=== PATIENT | female | born 1950 | race Caucasian/White ===

== ENCOUNTER 2016-05-11 05:54 | Inpatient (IN) | payer OTHER ==
[2016-04-29 11:14] LABS: ADD DIFF? NO; ADD MORPH? NO; ADD SCAN? NO; ATYPICAL LYMPHOCYTE FLAG 10 (0-99); FRAGMENT RBC FLAG 0 (0-99); HEMATOCRIT 45.3 % (38.0-47.0); HEMOGLOBIN 15.5 g/dL (12.6-16.3); LEFT SHIFT FLG 0 (0-99); LIPEMIA HEMOLYSIS FLAG 90 (0-99); MEAN CELL HEMOGLOBIN 32.8 pg (27.9-34.1); MEAN CELL HEMOGLOBIN CONCENTR. 34.2 g/dL (32.4-36.7); MEAN CELL VOLUME 95.8 fL (81.5-99.8); PLATELET CLUMPS FLAG 0 (0-99); PLATELET COUNT 284 10^3/uL (150-400); RED BLOOD CELL COUNT 4.73 10^6/uL (4.18-5.33); RED CELL DISTRIBUTION WIDTH 12.2 % (11.5-15.2)
[~2016-05-11 05:54] MED LIST: LIDOCAINE 0.5% 50 ML SDV ONE; LIDOCAINE 1% 5 ML SDV ONE
[2016-05-11] MEDS ORDERED: DEXAMETHASONE 4 MG/ML VIAL ONE (06:38)
[2016-05-11] MEDS ORDERED: FAMOTIDINE 20 MG TAB ONE (06:38)
[2016-05-11] MEDS ORDERED: CEFAZOLIN 2 GM/DEXTROSE/100 ML BAG IV ONE (06:39)
[2016-05-11] MEDS ORDERED: BUPIVACAINE/EPI 0.5% 30 ML SDV ONE (06:42)
[2016-05-11] MEDS ORDERED: THROMBIN (RECOMBINANT) 5,000 UNIT VIAL TP ONE (06:43)
[2016-05-11] MEDS ORDERED: POLYMYXIN B SULFATE 500,000 UNIT/10 ML SYR IRR ONE (06:43)
[2016-05-11] MEDS ORDERED: CALCIUM CHLORIDE 1 GM/10 ML INJ ONE (06:43)
[2016-05-11] MEDS ORDERED: BACITRACIN 50,000 UNITS/10 ML SYR IRR ONE (06:43)
[2016-05-11] MEDS ORDERED: ACETAMINOPHEN 325 MG TAB PO ONE (07:00)
[2016-05-11] MEDS ORDERED: ROPI/epiNEPH/KETOROLAC/morphINE JOINT COCKTAIL IU ONE (07:00)
[2016-05-11] MEDS ORDERED: CHLORHEXIDINE GLUC HIBICLENS 118 ML BTL TP ONE (07:00)
[2016-05-11] MEDS ORDERED: DEXAMETHASONE 4 MG/ML VIAL IVP ONE (07:00)
[2016-05-11] MEDS ORDERED: FAMOTIDINE 20 MG TAB PO ONE (07:00)
[2016-05-11] MEDS ORDERED: CEFAZOLIN 2 GM/DEXTR 100 ML IV ONE (07:00)
[2016-05-11] MEDS ORDERED: PROPOFOL/EMULSION 500 MG/50 ML BOTTLE IV ONE (07:10)
[2016-05-11] MEDS ORDERED: LIDOCAINE 2% 100 MG/5 ML SYR IVP ONE (07:10)
[2016-05-11] MEDS ORDERED: MIDAZOLAM 2 MG/2 ML VIAL ONE (07:13)
[2016-05-11] MEDS ORDERED: LR 1,000 ML IV ONE (07:52)
[2016-05-11] MEDS ORDERED: LIDOCAINE 1% 5 ML SDV ID PRN (07:52)
[2016-05-11] MEDS ORDERED: LORazepam 0.5 MG TAB PO PRN (09:45)
[2016-05-11] MEDS ORDERED: valACYclovir 500 MG TAB PO PRN (09:45)
--- NOTE | 2016-05-11 09:45 | POSTOPPROG ---
Post Op Note Date of Operation: 05/11/16 Surgeon: Corrina Fisher Welding Setter: justin Anesthesiologist: abigail Anesthesia: Epidural Pre-op Diagnosis: l hip oa Procedure: l yue with fluoro Inf/Abcess present in the surg proc area at time of surgery?: No Depth: Deep Incisional (Fascial) EBL: 100-500
[2016-05-11] MEDS ORDERED: BISACODYL 10 MG SUPP PR PRN (09:46)
[2016-05-11] MEDS ORDERED: ONDANSETRON 4 MG/2 ML VIAL IVP PRN (09:46)
[2016-05-11] MEDS ORDERED: MAGNESIUM HYDROXIDE 30 ML UDCUP PO PRN (09:46)
[2016-05-11] MEDS ORDERED: LACTULOSE 20 GM/30 ML UDCUP PO PRN (09:46)
[2016-05-11] MEDS ORDERED: diphenhydrAMINE 25 MG CAP PO PRN (09:46)
[2016-05-11] MEDS ORDERED: POLYETHYLENE GLYCOL 3350 17 GM PKT PO PRN (09:46)
[2016-05-11] MEDS ORDERED: ONDANSETRON DISINTEGRATING 4 MG TAB PO PRN (09:46)
[2016-05-11] MEDS ORDERED: TAPENTADOL HCL 50 MG TAB PO PRN (09:46)
[2016-05-11] MEDS ORDERED: CYCLOBENZAPRINE 10 MG TAB PO PRN (09:46)
[2016-05-11] MEDS ORDERED: DIPHENOXYLATE/ATROPINE LOMOTIL 1 TAB PO PRN (09:46)
[2016-05-11] MEDS ORDERED: PROMETHAZINE HCL 25 MG SUPPR PR PRN (09:46)
[2016-05-11] MEDS ORDERED: METOCLOPRAMIDE 10 MG/2 ML VIAL IVP PRN (09:46)
[2016-05-11] MEDS ORDERED: PHARMACY PAIN CONSULT 1 EA MISC PRN (09:46)
[2016-05-11] MEDS ORDERED: TEMAZEPAM 15 MG CAP PO PRN (09:46)
[2016-05-11] MEDS ORDERED: PROMETHAZINE HCL 25 MG/ML INJ IVP PRN (09:46)
[2016-05-11] MEDS ORDERED: oxyCODONE IR 5 MG TAB PO PRN (09:46)
[2016-05-11] MEDS ORDERED: LR 1,000 ML IV SCH (10:00)
--- NOTE | 2016-05-11 10:32 | DX ---
AP Pelvis, 10:15 AM History: Hip replacement surgery. Findings: A bipolar left hip arthroplasty is present and appears to be in excellent anatomic alignme nt. The acetabular component is affixed to the underlying acetabulum with 2 compression screws. Impression: Excellent alignment of the right hip arthroplasty.
--- NOTE | 2016-05-11 11:04 | GOP ---
[f rep st] OPERATIVE REPORT DATE OF OPERATION: 05/11/2016 SURGEON: Corrina Fisher MD FINANCIAL INTERN: JENNY TurciosA, LSA, whose presence was medically necessary. ANESTHESIA: Spinal plus sedation. PREOPERATIVE DIAGNOSIS: Left hip dysplasia with osteoarthritis. POSTOPERATIVE DIAGNOSIS: Left hip dysplasia with osteoarthritis. PROCEDURE PERFORMED: Left total hip arthroplasty with fluoroscopy. FINDINGS: INDICATIONS: This is a 65-year-old female who has developed increasing left hip pain over the last several months. Despite multiple conservative measures, she continues to have worsening of her symptoms. Radiographic studies reveal dysplasia of the hip, along with [id number] osteoarthritic changes to the weightbearing portion of her hip. She wishes to have surgery in order to resolve the problem. DESCRIPTION OF PROCEDURE: The patient was brought to the operating room, after the left side had been identified as correct side by the patient, nurse, and physician. Once in the operating room, she was given an epidural nerve block. She was then placed on a traction table with a well-padded peroneal splint and both legs placed in the appropriate leg khan. Fluoroscopy was used to ensure proper positioning of the pelvis on the table. Once ensured, the left hip and flank were sterilely prepped and draped in the usual fashion using GSI solution. Once prepped and draped, a linear incision was made, starting 2 cm lateral and inferior to the ASIS and heading in a 15-degree posterior direction. Sharp dissection was carried down through the skin, subcutaneous layers, identifying the fascia below, with bleeding controlled using electrocautery. The fascia overlying the belly of the TFL was incised with the muscle belly retracted laterally. Exploration of the deep portion of the fascial sheath revealed the circumflex vessels, which were also cauterized. Deeper dissection was carried down on the hip capsule, with the fat removed off the anterior portion of the capsule and a T-incision made through the capsule and stay sutures placed in each part of the T-incision. Retractors were placed intracapsularly. Oscillating saw was used to cut across the femoral neck just above the intertrochanteric line with the leg externally rotated 40 degrees and a corkscrew used to remove the femoral head. The labrum was able to be removed, along with the pulvinar, at the base of the acetabulum. Sequential reamers were used, starting at a 46 and extending to a 49. Noted to get good bleeding bone. Fluoroscopy was used to ensure proper positioning of the reamers. A size 50 [employer] cup was put into place with a screw placed in the superior and posterior portion. Once in place, a 32 x 50 mm polyethylene liner was put into place, noted to fit securely. Attention was then turned to the femur. It was externally rotated to 90 degrees. Dissection was carried on in the anterior portion and the superior portion of the femoral neck. Once it was loose enough and the capsule had been released enough, the leg was brought into extension and adduction. A curette was used to remove intramedullary bone, and a rongeur was used to cut the superior portion of the femoral neck. Sequential broaches were used up to a size 5, which was noted to fit securely. Trial reduction was performed. Fluoroscopy was used to ensure adequate fill of the proximal femur. Once this was ensured, and leg length had been approximated, she was re-dislocated, placed in extension and adduction. The trial was removed, and a size 5 standard offset Anthology femoral component from [employer] was put into place. Once it was noted to fit securely, a trial reduction was done with a +4 head, noted to fit securely with good soft tissue tension, and had good length on fluoroscopy. Once ensured, the leg was dislocated, placed in extension and abduction again. The trunnion was washed and dried, and a 32 mm Oxinium +4 head from [employer] was put into place. She was re-reduced. Fluoroscopy was used to ensure proper positioning. Joint cocktail was injected around the acetabulum and the proximal portion of the femur. The capsule was closed using 0 Vicryl suture in a hvtyap-cu-[id number] type stitch. Plasma gel was placed intra-articularly. 0 Vicryl suture was used to close the sheath overlying the TFL with plasma gel placed within the TFL sheath. 0 Vicryl and 2-0 Vicryl suture were used to close subcutaneous layers, and a 3-0 Prolene suture in a running subcuticular stitch for the skin. The wound was dressed with Steri-Strips, Xeroform, 4 x 4's, and Tegaderm. She was completely undraped in the operating room. Her legs were taken out of the leg khan. Peroneal post was removed. Her leg lengths were noted to be nearly identical. She was transferred onto a stretcher and sent to recovery room in good condition. /[id number]/MODL MTDD
--- NOTE | 2016-05-11 11:19 | DX ---
Intraoperative fluoroscopy. 05/11/2016 History: Left hip arthroplasty Discussion: 1.1 seconds of fluoroscopy time were utilized by during left hip arthroplasty.. Radiographs obtained during the procedure demonstrate a left hip arthroplasty in progress.. Impression: Intraoperative fluoroscopy during left hip arthroplasty..
[2016-05-11 11:25] VITALS: RESP 16
[2016-05-11] MEDS ORDERED: traMADol 50 MG TAB ONE (11:59)
[2016-05-11] MEDS ORDERED: KETOROLAC 30 MG/1 ML SDV ONE (11:59)
[2016-05-11] MEDS: ACETAMINOPHEN 325 MG TAB PO SCH ×2 (13:14→17:58)
[2016-05-11] MEDS: KETOROLAC 30 MG/1 ML SDV IVP SCH ×2 (13:16→18:00)
[2016-05-11] MEDS: traMADol 50 MG TAB PO SCH ×2 (13:18→18:00)
[2016-05-11] MEDS ORDERED: ceFAZolin 2 GM/DEXTROSE 100 ML IV SCH (14:00)
[2016-05-11] MEDS: ceFAZolin 2 GM in D5W 100 ML IV SCH ×2 (14:06→22:16)
[2016-05-11] MEDS: SENNOSIDES/DOCUSATE SODIUM TAB PO SCH (20:10)
[2016-05-11] MEDS: FAMOTIDINE 20 MG TAB PO SCH (20:10)
[2016-05-12] MEDS: traMADol 50 MG TAB PO SCH ×3 (00:01→11:15)
[2016-05-12] MEDS: ACETAMINOPHEN 325 MG TAB PO SCH ×3 (00:01→11:15)
[2016-05-12] MEDS: KETOROLAC 30 MG/1 ML SDV IVP SCH ×3 (00:01→11:15)
[2016-05-12 05:25] LABS: HEMATOCRIT 32.9 % (38.0-47.0)
[2016-05-12 08:18] VITALS: BP 105/63; PULSE 70; TEMP 98.6; O2SAT 96
[2016-05-12] MEDS: FAMOTIDINE 20 MG TAB PO SCH (08:37)
[2016-05-12] MEDS: SENNOSIDES/DOCUSATE SODIUM TAB PO SCH (08:38)
[2016-05-12] MEDS ORDERED: MULTIVITAMINS 1 EACH TAB PO SCH (09:00)
[2016-05-12] MEDS ORDERED: RIVAROXABAN 10 MG TAB PO SCH (09:00)
[2016-05-12] MEDS ORDERED: CALCIUM CARB W/VIT D 500 MG TAB PO SCH (09:00)
[2016-05-12] MEDS ORDERED: CHOLECALCIFEROL VIT D3 1,000 UNITS TAB PO SCH (09:00)
--- NOTE | 2016-05-12 09:33 | SOAPPROG ---
SOAP Progress Note Assessment/Plan: Assessment: POD#1 Plan: - doing well d/c home with PT 05/12/16 09:32 Subjective: Pain is minimal, no issues Objective: Vital Signs Temp Pulse Resp BP Pulse Ox 37.0 C 70 16 105/63 96 05/12/16 08:17 05/12/16 08:17 05/12/16 08:17 05/12/16 08:17 05/12/16 08:17 Laboratory Results 05/12/16 04:54 05/11/16 05/12/16 05/13/16 05:59 05:59 05:59 Intake Total 3620 Output Total 1500 Balance 2120 - Time Spent With Patient Time Spent With Patient: 15 m - Pending Discharge Pending Discharge Within 24 Hours: Yes Pending Discharge Within 48 Hours: No Pending Discharge Date: 05/13/16 Pending Discharge Time: 11:00 ICD10 Worksheet Patient Problems: Problems Problem Status Onset Arthritis of left hip Acute - ICD10 Problem Qualifiers (1) Arthritis of left hip
--- NOTE | 2016-05-12 09:35 | PDIAF ---
- Diagnosis Code Status: Full Code - Medication Management Discharge Medications: Medications to Continue on Transfer Calcium Carb W/Vit D [Calcium Carb W/Vit D 500/200 (*)] 1,000 mg PO DAILY [Last Taken 05/03/16] Cholecalciferol Vit D3 [Vitamin D3 (*)] 1,000 units PO DAILY 04/21/16 [Last Taken 05/03/16] LORazepam [Ativan (*)] 0.5 mg PO HS PRN 04/21/16 [Last Taken 05/09/16] Multivitamins [Multivitamin (*)] 1 each PO DAILY 04/21/16 [Last Taken 05/03/16] valACYclovir [Valtrex (*)] 1,000 mg PO BID PRN 04/21/16 [Last Taken 05/09/16] Acetaminophen [Tylenol 325mg (*)] 650 mg PO Q6HRS #0 tab 05/12/16 [Last Taken Unknown] Rivaroxaban [Xarelto 10mg (*)] 10 mg PO DAILY #0 tab 05/12/16 [Last Taken Unknown] celeCOXIB [Celebrex (*)] 200 mg PO DAILY #0 cap 05/12/16 [Last Taken Unknown] traMADol [Ultram 50 mg (*)] 50 mg PO Q6HRS #0 tab 05/12/16 [Last Taken Unknown] Discharge Medications: Refer to the Discharge Home Medication list for PRN reason. PICC Care - Routine: N/A - Orders Services needed: Physical Therapy Diet Recommendation: no restrictions on diet Diet Texture: Regular Texture Diet Sanders: Not applicable Sutures/[place] Site: will remove in office, please keep dressing on until patient is seen in office Activity/Weight Bearing Restrictions: wbat - Follow Up Care Current Providers and Referrals: Ingris Meehan MD [Primary Care Provider] -
== END 2016-05-12 11:42 | disposition home or self-care (01) | DRG 470 ==
LOC: F3N 05:54
PROVIDERS: ADMIT Orthopaedic Surgery; ATTEND Orthopaedic Surgery
PROC: 0SRB02Z Replacement of Left Hip Joint with Metal on Polyethylene Synthetic Substitute, Open Approach (ICD-10-PCS; principal; 2016-05-11 07:15)
DX: M16.32 Unilateral osteoarthritis resulting from hip dysplasia, left hip (principal); Z87.891 Personal history of nicotine dependence; Z85.820 Personal history of malignant melanoma of skin
CPT/HCPCS: 97110-GP; 97116-GP; 97161-GP; 97530-GP; C1713; G8978-GP-CJ; G8979-GP-CI; G8980-GP-CI; J0171; J0690; J1100; J1885; J2001; J2250; J2704; J2795